=== PATIENT | female | born 1990 | race Caucasian/White ===

== ENCOUNTER 2020-11-26 07:46 | Inpatient (IN) ==
[2020-11-26] MEDS ORDERED: OXYTOCIN 30 UNITS/500 ML BAG IV PRN ×2 (07:54→21:21)
[2020-11-26 08:32] LABS: Hematocrit (blood only) 38.9 % (37-47); Hemoglobin 13.6 g/dL (12.0-16.0); Mean Corpuscular Hemoglobin 32.7 pg (25-34); Mean Corpuscular Volume 93.5 fL (80-100); Mean Platelet Volume 10.4 fL (7.4-10.4); Platelet Count 161 K/uL (130-400); RDW Coefficient of Variation 13.2 % (11.5-14.5); RDW Standard Deviation 45.4 fL (36.4-46.3); Red Blood Count 4.16 M/uL (4.2-5.4); White Blood Count 11.29 K/uL (4.8-10.8)
--- NOTE | 2020-11-26 09:15 | History & Physical Report ---
Date of Service November 26, 2020 Assessment & Plan Admission and Anticipated Discharge Date Admission Date: November 26, 2020 History of Present Illness Primary Care Provider: NO PCP Allergies Allergy/AdvReac Type Severity Reaction Status Date / Time No Known Allergies Allergy Verified 11/25/20 16:19 Home Medications Medication Instructions Recorded Confirmed Type prenat.vits,brandon,mai-voeh-xtaly 1 tab PO DAILY 11/26/20 11/26/20 History Patient History Medical History (Updated 10/25/20 @ 11:03 by Alina Wharton MD, FACOG) Asthma Family history of factor V deficiency Varicella vaccination Surgical History (Updated 04/05/20 @ 09:51 by Roxy Gray) S/P wisdom tooth extraction Family History (Updated 04/05/20 @ 09:52 by Roxy Gray) Aunt Breast cancer maternal Denies family history of Ovarian cancer Osteoporosis Colorectal cancer Uterine cancer Social History (Updated 04/05/20 @ 09:54 by Roxy Gray) Smoking Status: Never smoker Hx Alcohol Use: No Hx Substance Use: No Preferred Language: Latvian Communication Ability: Effective Offc Spec Required: No marital status: marital status details: Lyndon Crespo (29) [phone] Current Living Situation: Spouse Current Living Situation Comment: lives with and dog current occupational status: unemployed Feels Safe at Home: Yes Safety Concerns: Feels Safe At This Time Assistive Devices: None Results & Data ([facility]) Vital Signs (Past 12 Hours) Vital Signs Temp Pulse Resp BP 11/26/20 08:44 98.2 F 20 11/26/20 07:52 93 H 109/68 Coding
--- NOTE | 2020-11-26 10:12 | History & Physical Report ---
Date of Service November 26, 2020 Assessment & Plan (1) Normal labor: Plan: IUP at 40 2/7 weeks in active labor ambulate- intermittent monitoring would like unmedicated anticipate vaginal delivery Admission and Anticipated Discharge Date Admission Date: November 26, 2020 History of Present Illness Chief Complaint: labor Primary Care Provider: NO PCP Patient is a female EDC 11/21/20 who presents on the day of IOL in labor. Contractions became regular at 0400 this morning. no bloody show or SPROM. GBS - negative Blood type is O positive. complicated by Factor V deficiency- heterozygote. Allergies Allergy/AdvReac Type Severity Reaction Status Date / Time No Known Allergies Allergy Verified 11/25/20 16:19 Home Medications Medication Instructions Recorded Confirmed Type prenat.vits,brandon,xtz-qjou-qqyjp 1 tab PO DAILY 11/26/20 11/26/20 History Patient History Medical History (Updated 11/26/20 @ 10:28 by Tash Good MD, FACOG) Asthma Family history of factor V deficiency Varicella vaccination Surgical History (Updated 04/05/20 @ 09:51 by Roxy Gray) S/P wisdom tooth extraction Family History (Updated 04/05/20 @ 09:52 by Roxy Gray) Aunt Breast cancer maternal Denies family history of Ovarian cancer Osteoporosis Colorectal cancer Uterine cancer Social History (Updated 04/05/20 @ 09:54 by Roxy Gray) Smoking Status: Never smoker Hx Alcohol Use: No Hx Substance Use: No Preferred Language: German Communication Ability: Effective 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 marital status: marital status details: Lyndon Crespo (29) [phone] Current Living Situation: Spouse Current Living Situation Comment: lives with and dog current occupational status: unemployed Feels Safe at Home: Yes Safety Concerns: Feels Safe At This Time Assistive Devices: None Review of Systems All systems reviewed & are unremarkable except as noted in HPI & below Physical Exam Constitutional: WD/WN, vitals as above Respiratory: normal respiratory effort, lungs clear to auscultation Cardiovascular: RRR, no murmur, no edema Psychiatric: A+Ox3, euthymic affect Genitourinary: OB Exam Abdomen: + vertex and + regular contractions (3-4 minutes) Manual OB Exam: + cervical dilation 3 cm, + cervical effacement 100% and + station 0 OB Exam Monitor Tracing: + external FHT monitor used, + external uterine monitor used, + category I and + normal FHT variability Results & Data ([facility]) Vital Signs (Past 12 Hours) Vital Signs Temp Pulse Resp BP 11/26/20 08:44 98.2 F 20 11/26/20 07:52 93 H 109/68 Coding Level of Care Code None Diagnoses Normal labor O80; Z37.9
[2020-11-26] MEDS ORDERED: SODIUM CHLORIDE 0.9% 250 ML IV PRN (11:12)
[2020-11-26] MEDS: LACTATED RINGER'S 1,000 ML IV PRN ×3 (12:35→17:28)
--- NOTE | 2020-11-26 12:38 | Labor Progress Brief Note ---
Date of Service November 26, 2020 Subjective Very uncomfortable w/ contractions Assessment & Plan (1) Normal labor: (2) : Plan: 30 y/o G1 at 40 5/7 wga admitted in labor VSS Fetus cat 1 Labor - SVE unchanged from prior exams, discussed AROM, pitocin, also epidural as pt is very painful. After discussion, pt desires epidural first then plan for AROM GBS neg Desires epidural now Admission and Anticipated Discharge Date Admission Date: November 26, 2020 Physical Exam Genitourinary: Manual OB Exam: + cervical dilation 4 cm, + cervical effacement 80% and + station -2 OB Exam Monitor Tracing: + external FHT monitor used, + external uterine monitor used (q4-7) and + category I (145/mod/+accel/-decel) Results & Data ([facility]) Vital Signs (Past 12 Hours) Vital Signs Temp Pulse Resp BP 11/26/20 11:59 98.4 F 16 11/26/20 10:50 85 130/77 11/26/20 08:44 98.2 F 20 11/26/20 07:52 93 H 109/68 Coding Level of Care Code None Diagnoses Normal labor O80; Z37.9 Z34.90
[2020-11-26] MEDS ORDERED: ePHEDrine sulfate 50 MG/ML AMP ONE (12:40)
[2020-11-26] MEDS ORDERED: fentaNYL citrate 100 MCG/2 ML VIAL ONE (12:41)
[2020-11-26] MEDS ORDERED: SODIUM CHLORIDE 0.9% INJ 10 ML VIAL ONE (12:41)
[2020-11-26] MEDS ORDERED: BUPIVACAINE 0.25% 30 ML VIAL ONE (12:41)
[2020-11-26] MEDS ORDERED: fentaNYL 2MCG/ML ROPIVACAINE 1.25MG/ML 100 ML BAG EPI ONE (12:42)
--- NOTE | 2020-11-26 13:00 | Anesthesiology Consultation ---
Date of Service November 26, 2020 Assessment & Plan Chart Review Chart Review: Patient NOT seen in Pre Admission Testing and Acceptable Risk for Labor Epidural Consults Requested none ASA ASA2 Proposed Anesthesia Anesthesia Type: Labor Epidural and CSE History Height/Weight Height: 5 ft 4 in Weight: 74.843 kg Allergies Allergy/AdvReac Type Severity Reaction Status Date / Time No Known Allergies Allergy Verified 11/25/20 16:19 Medications Home Medications Medication Instructions Recorded Confirmed Last Taken prenat.vits,brandon,fkh-hcgy-xcymn 1 tab PO DAILY 11/26/20 11/26/20 11/26/20 06:00 Active Medications Generic Name Dose Route Start Last Admin Trade Name Freq PRN Reason Stop Dose Admin Lactated Ringer's 1,000 mls @ 125 mls/hr 11/26/20 07:54 11/26/20 12:35 Lr IV 11/28/20 07:53 999 mls/hr .Q8H PRN Administration L&D Protocol Protocol Past Medical History Medical History Asthma Family history of factor V deficiency Varicella vaccination Exercise / Class Metabolic Activity II 4-5 Yardwork/Stairs/Walk up hill Past Family History Family History Aunt Breast cancer maternal Denies family history of Ovarian cancer Osteoporosis Colorectal cancer Uterine cancer Past Surgical History Surgical History S/P wisdom tooth extraction Past Anesthesia History No Hx of Anesthesia Complications and No Family Hx of Anesthesia Complications History of PONV No Hx of PONV and No Hx of Motion Sickness Social History Smoking Status: Never smoker Hx Alcohol Use: No Hx Substance Use: No substance use type: does not use Physical Exam Vital Signs Last Vital Signs Temp 36.9 C 11/26/20 11:59 Pulse 85 11/26/20 10:50 Resp 16 11/26/20 11:59 BP 130/77 11/26/20 10:50 Testing Laboratory Results 11/26/20 08:11
[2020-11-26] MEDS ORDERED: NALOXONE HCL 0.4 MG/1 ML VIAL/CARP IV PRN (13:33)
[2020-11-26] MEDS ORDERED: PROMETHAZINE HCL 25 MG in SODIUM CHLORIDE 0.9% 50 ML IV PRN (13:33)
[2020-11-26] MEDS ORDERED: NALOXONE HCL 1 MG in SODIUM CHLORIDE 0.9% 1000ML 1,000 ML IV PRN (13:33)
[2020-11-26] MEDS ORDERED: ePHEDrine sulfate 50 MG/ML AMP IV PRN (13:33)
[2020-11-26] MEDS ORDERED: fentaNYL 2MCG/ML ROPIVACAINE 1.25MG/ML 100 ML BAG EPI PRN (13:33)
[2020-11-26] MEDS ORDERED: NALBUPHINE HCL INJ 10 MG/ML AMP IV PRN (13:33)
[2020-11-26] MEDS ORDERED: ONDANSETRON INJ 2 MG/ML 2 ML VIAL IV PRN (13:33)
[2020-11-26] MEDS ORDERED: diphenhydrAMINE 50 MG/ML VIAL IV PRN (13:33)
--- NOTE | 2020-11-26 14:06 | Labor Progress Brief Note ---
Date of Service November 26, 2020 Subjective Comfortable w/ epidural Assessment & Plan (1) Normal labor: (2) : Plan: 30 y/o G1 at 40 5/7 wga admitted in labor VSS Fetus cat 1 Labor - now s/p arom after comfortable w/ epidural, continue to monitor GBS neg Epidural in place Admission and Anticipated Discharge Date Admission Date: November 26, 2020 Physical Exam Genitourinary: Manual OB Exam: + cervical dilation 4 cm, + cervical effacement 80%, + station -2 and + amniotic fluid (AROM clear fluid) OB Exam Monitor Tracing: + external FHT monitor used, + external uterine monitor used (q4-7) and + category I (130/mod/+accel/-decel) Results & Data ([facility]) Vital Signs (Past 12 Hours) Vital Signs Temp Pulse Resp BP Pulse Ox 11/26/20 14:00 70 100 11/26/20 13:58 90 101/58 L 11/26/20 13:55 91 H 100 11/26/20 13:50 87 100 11/26/20 13:45 106 H 100 11/26/20 13:42 90 102/57 L 11/26/20 13:41 93 H 93/56 L 11/26/20 13:40 88 100 11/26/20 13:39 100 H 102/56 L 11/26/20 13:37 104 H 101/57 L 11/26/20 13:35 93 H 102/56 L 100 11/26/20 13:33 82 104/59 L 11/26/20 13:31 100 H 104/58 L 11/26/20 13:30 88 105/57 L 99 11/26/20 13:28 78 111/65 11/26/20 13:25 99 H 100 11/26/20 13:24 81 121/73 11/26/20 13:20 93 H 100 11/26/20 13:15 104 H 100 11/26/20 13:10 87 120/74 100 11/26/20 11:59 98.4 F 16 11/26/20 10:50 85 130/77 11/26/20 08:44 98.2 F 20 11/26/20 07:52 93 H 109/68 Coding Level of Care Code None Diagnoses Normal labor O80; Z37.9 Z34.90
--- NOTE | 2020-11-26 16:26 | Labor Progress Brief Note ---
Date of Service November 26, 2020 Subjective Comfortable w/ epidural Assessment & Plan (1) Normal labor: (2) : Plan: 30 y/o G1 at 40 5/7 wga admitted in labor VSS Fetus cat 1 Labor - will labor down as pt does not feel pressure, plan to push in next hour or so GBS neg Epidural in place Admission and Anticipated Discharge Date Admission Date: November 26, 2020 Physical Exam Genitourinary: Manual OB Exam: + cervical dilation 10 cm, + cervical effacement 100% and + station + 1 OB Exam Monitor Tracing: + external FHT monitor used, + external uterine monitor used (q3-5) and + category I (140/mod/-accel/-decel) Results & Data ([facility]) Vital Signs (Past 12 Hours) Vital Signs Temp Pulse Resp BP Pulse Ox 11/26/20 16:20 96 H 100 11/26/20 16:15 87 100 11/26/20 16:14 90 110/56 L 11/26/20 16:10 108 H 100 11/26/20 16:05 88 100 11/26/20 16:00 95 H 100 11/26/20 15:59 83 101/59 L 11/26/20 15:55 85 100 11/26/20 15:50 82 100 11/26/20 15:45 79 100 11/26/20 15:44 81 109/56 L 11/26/20 15:40 79 100 11/26/20 15:35 92 H 100 11/26/20 15:30 78 100 11/26/20 15:29 81 20 109/60 11/26/20 15:25 85 100 11/26/20 15:20 84 100 11/26/20 15:15 107 H 99 11/26/20 15:13 83 109/60 11/26/20 15:10 84 100 11/26/20 15:05 90 100 11/26/20 15:00 96 H 96 11/26/20 14:59 82 106/60 11/26/20 14:55 84 100 11/26/20 14:50 82 100 11/26/20 14:45 90 100 11/26/20 14:43 98.8 F 82 16 101/57 L 11/26/20 14:40 89 100 11/26/20 14:35 85 99 11/26/20 14:30 80 100 11/26/20 14:28 80 16 101/58 L 11/26/20 14:25 88 100 11/26/20 14:20 78 100 11/26/20 14:15 81 99 11/26/20 14:13 85 102/58 L 11/26/20 14:10 89 100 11/26/20 14:05 88 99 11/26/20 14:00 70 100 11/26/20 13:58 90 101/58 L 11/26/20 13:55 91 H 100 11/26/20 13:50 87 100 11/26/20 13:45 106 H 100 11/26/20 13:42 90 102/57 L 11/26/20 13:41 93 H 93/56 L 11/26/20 13:40 88 100 11/26/20 13:39 100 H 102/56 L 11/26/20 13:37 104 H 101/57 L 11/26/20 13:35 93 H 102/56 L 100 11/26/20 13:33 82 104/59 L 11/26/20 13:31 100 H 104/58 L 11/26/20 13:30 88 105/57 L 99 11/26/20 13:28 78 111/65 11/26/20 13:25 99 H 100 11/26/20 13:24 81 121/73 11/26/20 13:20 93 H 100 11/26/20 13:15 104 H 100 11/26/20 13:10 87 120/74 100 11/26/20 11:59 98.4 F 16 11/26/20 10:50 85 130/77 11/26/20 08:44 98.2 F 20 11/26/20 07:52 93 H 109/68 Coding Level of Care Code None Diagnoses Normal labor O80; Z37.9 Z34.90
--- NOTE | 2020-11-26 20:48 | Delivery Summary ---
Vaginal Delivery Summary Date of Service November 26, 2020 Vaginal Delivery Summary and 2nd Degree LAC PREOPERATIVE DIAGNOSIS: 1. Single intrauterine at 40 5/7 wga 2. Labor 3. Factor V Leiden Heterozygote 4. CF carrier POSTOPERATIVE DIAGNOSIS: 1. Single intrauterine at 40 5/7 wga 2. Labor 3. Factor V Leiden Heterozygote 4. CF carrier 5. Delivered PROCEDURE: 1. Normal spontaneous vaginal delivery. SURGEON: Shayy Quinn MD ANESTHESIA: Epidural. ESTIMATED BLOOD LOSS: 300 mL FLUIDS: Continuous LR. URINE OUTPUT: None. COMPLICATIONS: None. CONDITION: Stable. INDICATIONS: 30 y/o G1 at 40 5/7 wga presented this morning for planned induction however was actually found to be in labor. She was expectantly managed, then received an epidural. She underwent artificial rupture of membranes and then progressed to complete and desired to push. FINDINGS: A viable female infant, weight pending with Apgars of 8 and 9 at 1 and 5 minutes respectively. SPECIMEN: Cord blood. OPERATIVE REPORT: The patient progressed to 10 cm, 100% effaced and +2 station, pushed over intact perineum with anesthesia to deliver a viable female infant, weight and Apgars as above. Head of delivered in ANTONIO position. No nuchal cord was present. Body and shoulders were delivered without difficulty. was delivered to maternal abdomen and nursing staff. Delayed cord clamping was performed for 60 seconds. Cord was clamped and cut. Cord blood was obtained. Placenta delivered spontaneously intact with 3-vessel cord. IV oxytocin and fundal massage were given for excellent hemostasis. Vagina, cervix, perineum, and placenta were inspected. A second degree laceration was noted. Sponge and needle counts correct x2. No sponges were left behind. Mother and stable in immediate period. [facility] [place] Charge Vaginal Delivery Codes: 15907 global code for the antepartum, delivery, and post- Delivery Type Details: and 2nd Degree LAC
[2020-11-26] MEDS ORDERED: CALCIUM CARBONATE 500 MG CHEWABLE TAB PO PRN (21:02)
[2020-11-26] MEDS ORDERED: DIPHTHERIA/TETANUS/PERTUSSIS 0.5 ML SYR/VIAL IM ONE (21:21)
[2020-11-26] MEDS ORDERED: BENZOCAINE 20% AER SPR 82.5 GM CAN EXT PRN (21:21)
[2020-11-26] MEDS ORDERED: ACETAMINOPHEN 325 MG TAB PO PRN (21:21)
[2020-11-26] MEDS ORDERED: HYDROCORTISONE ACETATE 25 MG SUPP PR PRN (21:21)
[2020-11-26] MEDS ORDERED: bisacodyL 10 MG SUPP PR PRN (21:21)
[2020-11-26] MEDS ORDERED: SUPERCREAM 0.870% 15 GM JAR EXT PRN (21:21)
--- NOTE | 2020-11-26 21:38 | Anesthesia Procedure Note ---
Date of Service November 26, 2020 Anesthesia Post Epidural Note Vital Signs Vital Signs: Temp Pulse Resp BP Pulse Ox 37.0 C 101 H 20 117/64 100 11/26/20 19:05 11/26/20 21:27 11/26/20 19:05 11/26/20 21:27 11/26/20 20:36 Pain Intensity Abdomen: Pain Intensity: 8 Notes Mental Status: alert / awake / arousable Nausea / Vomiting: adequately controlled Pain: adequately controlled Airway Patency, RR, SpO2: stable & adequate BP & HR: stable & adequate Hydration State: stable & adequate Neuraxial Anesthesia: was administered and sensory block is resolving Anesthetic Complications: no major complications apparent Epidural: Removed without complications and With tip intact
[2020-11-26] MEDS: IBUPROFEN 600 MG TAB PO PRN (22:08)
[2020-11-27] MEDS: IBUPROFEN 600 MG TAB PO PRN ×4 (03:50→20:31)
--- NOTE | 2020-11-27 06:32 | Obstetrical Progress Note ---
Date of Service <Hunter Parisi - Last Filed: 11/27/20 06:32> November 27, 2020 Assessment & Plan <Hunter Parisi - Last Filed: 11/27/20 06:32> (1) Encounter for care and examination after delivery: 30 yo PPD 1 s/p at 40weeks -Continue routine care; complicated by Factor V Leiden; keep pt additional 24 hours. -Vitals reviewed- HDS, afebrile -O+, GBS-, Rubella immune -Encourage ambulation, regular diet -Pain control with ibuprofen, acetaminophen PRN -Encouraged <Shayy Quinn MD - Last Filed: 11/27/20 08:17> (1) Encounter for care and examination after delivery: Subjective <Hunter Parisi - Last Filed: 11/27/20 06:32> Ambulation: ambulating normally Voiding: no voiding problems Passing Gas:: Yes Diet Tolerance:: regular diet Lochia:: Large Feeding Type:: breast feeding Current Pain Level(1-10): 2 PPD 1 s/p . Patient seen and examined at bedside. Reports no acute overnight events. Review of Systems All systems reviewed & are unremarkable except as noted in HPI & below Physical Exam <Hunter Parisi DO - Last Filed: 11/27/20 06:32> General: Alert, oriented, no acute distress Cardiac: Regular rate and rhythm, normal S1, S2. No murmurs appreciated. Respiratory: Clear to auscultation b/l with good air flow entry, symmetric chest rise and fall. No wheezes or crackles. No increased work of breathing or accessory muscle use Abdomen: Soft, nontender, nondistended. Fundus firm and palpable at 1 cm above u mbilicus. No guarding or rebound. Skin: No rashes or lesions Extremities: Warm, dry, well-perfused with capillary refill <2s b/l. No lower extremity edema, erythema or swelling. Negative Nia's sign b/l. Results & Data ([facility]) <Hunter Parisi - Last Filed: 11/27/20 06:32> Vital Signs (Past 12 Hours) Vital Signs Temp Pulse Pulse Pulse Resp BP BP 11/27/20 03:35 36.6 C 88 18 115/79 11/26/20 23:00 36.9 C 74 18 118/74 11/26/20 22:42 81 122/61 11/26/20 22:27 89 112/58 L 11/26/20 22:12 126 H 106/69 11/26/20 21:57 87 99/58 L 11/26/20 21:42 95 H 107/61 11/26/20 21:27 101 H 117/64 11/26/20 21:12 92 H 110/59 L 11/26/20 20:57 113 H 98/55 L 11/26/20 20:43 96 H 107/58 L 11/26/20 20:36 89 11/26/20 20:31 94 H 11/26/20 20:26 95 H 11/26/20 20:21 99 H 11/26/20 20:16 130 H 11/26/20 20:13 103 H 150/120 H 11/26/20 20:11 84 11/26/20 20:06 94 H 11/26/20 20:01 84 11/26/20 19:56 118 H 11/26/20 19:51 94 H 11/26/20 19:46 86 11/26/20 19:43 98 H 137/59 L 11/26/20 19:41 114 H 11/26/20 19:36 118 H 11/26/20 19:31 96 H 11/26/20 19:28 100 H 132/69 11/26/20 19:26 90 11/26/20 19:21 102 H 11/26/20 19:16 85 11/26/20 19:13 81 129/65 11/26/20 19:11 94 H 11/26/20 19:06 102 H 11/26/20 19:05 37.0 C 20 11/26/20 19:01 94 H 11/26/20 18:59 88 130/60 11/26/20 18:56 84 11/26/20 18:51 89 11/26/20 18:46 105 H 11/26/20 18:45 91 H 122/69 11/26/20 18:41 110 H 11/26/20 18:36 104 H 11/26/20 18:31 103 H 11/26/20 18:29 100 H 20 143/77 H Pulse Ox 11/27/20 03:35 98 11/26/20 23:00 99 11/26/20 22:42 11/26/20 22:27 11/26/20 22:12 11/26/20 21:57 11/26/20 21:42 11/26/20 21:27 11/26/20 21:12 11/26/20 20:57 11/26/20 20:43 11/26/20 20:36 100 11/26/20 20:31 100 11/26/20 20:26 99 11/26/20 20:21 97 11/26/20 20:16 100 11/26/20 20:13 11/26/20 20:11 100 11/26/20 20:06 100 11/26/20 20:01 100 11/26/20 19:56 100 11/26/20 19:51 100 11/26/20 19:46 100 11/26/20 19:43 11/26/20 19:41 100 11/26/20 19:36 98 11/26/20 19:31 100 11/26/20 19:28 11/26/20 19:26 100 11/26/20 19:21 100 11/26/20 19:16 99 11/26/20 19:13 11/26/20 19:11 100 11/26/20 19:06 100 11/26/20 19:05 11/26/20 19:01 100 11/26/20 18:59 11/26/20 18:56 100 11/26/20 18:51 100 11/26/20 18:46 100 11/26/20 18:45 11/26/20 18:41 100 11/26/20 18:36 99 11/26/20 18:31 100 11/26/20 18:29 <Shayy Quinn MD - Last Filed: 11/27/20 08:17> Co-Signing Physician Notes Resident Physician Supervision Note: I interviewed and examined the patient. Discussed with Dr. Parisi and agree with findings and plan as documented in the note. Any exceptions or clarifications are listed here: PP1, doing well. Continue routine pp care, plan for d/c tomor row Documented By: Shayy Quinn MD
[2020-11-27 06:55] LABS: Hematocrit (blood only) 30.8 % (37-47); Hemoglobin 10.5 g/dL (12.0-16.0); Mean Corpuscular Hemoglobin 32.2 pg (25-34); Mean Corpuscular Hgb Conc 34.1 g/dL (32-36); Mean Corpuscular Volume 94.5 fL (80-100); Mean Platelet Volume 10.4 fL (7.4-10.4); Platelet Count 137 K/uL (130-400); RDW Coefficient of Variation 13.3 % (11.5-14.5); RDW Standard Deviation 46.3 fL (36.4-46.3); Red Blood Count 3.26 M/uL (4.2-5.4); White Blood Count 13.25 K/uL (4.8-10.8)
[2020-11-27] MEDS: PRENATAL VITAMIN 1 TAB PO SCH (07:57)
[2020-11-27] MEDS: DOCUSATE SODIUM 100 MG CAP PO SCH ×2 (07:57→20:32)
[2020-11-27] MEDS: FERROUS SULFATE 325 MG TAB PO SCH (12:58)
[2020-11-27] MEDS ORDERED: bisacodyL 5 MG TABEC PO SCH (20:00)
--- NOTE | 2020-11-28 08:16 | Obstetrical Progress Note ---
Date of Service November 28, 2020 Assessment & Plan (1) Encounter for care and examination after delivery: satisfactory progress discharge tyo home today follow up in 6 weeks Subjective Ambulation: ambulating normally Voiding: no voiding problems Diet Tolerance:: regular diet Lochia:: Small Feeding Type:: breast feeding Review of Systems All systems reviewed & are unremarkable except as noted in HPI & below Physical Exam Constitutional WD/WN, vitals as above Psychiatric A+Ox3, euthymic affect Genitourinary OB Exam Abdomen: + fundal height Fundus: + firm and + relation to umbilicus (2 below ) Results & Data ([facility]) Vital Signs (Past 12 Hours) Vital Signs Temp Pulse Resp BP 11/27/20 23:45 98.4 F 97 H 18 111/72
[2020-11-28] MEDS: IBUPROFEN 600 MG TAB PO PRN (09:02)
[2020-11-28] MEDS: FERROUS SULFATE 325 MG TAB PO SCH (09:03)
[2020-11-28] MEDS: PRENATAL VITAMIN 1 TAB PO SCH (09:03)
== END 2020-11-28 13:30 | disposition home or self-care (01) | DRG 807 ==
LOC: 4S1 07:46 → 4S2 23:01

== ENCOUNTER 2023-10-06 18:14 | Inpatient (IN) ==
[2023-10-06] MEDS ORDERED: LIDOCAINE 1% LOCAL 20 ML VIAL INFIL PRN (18:31)
--- NOTE | 2023-10-06 18:33 | History & Physical Report ---
Date of Service October 06, 2023 Assessment & Plan (1) Uterine contractions: Plan: Admit to L&D. EFM/toco. Labs. IV. Desires epidural - ok when she chooses. History of Present Illness Chief Complaint: labor Primary Care Provider: NO PCP 33yo @ 39 4/7, contractions since last night, increasing. No leaking fluid, no vaginal bleeding. + movement. Allergies Allergy/AdvReac Type Severity Reaction Status Date / Time pollen extracts Allergy Itching Verified 10/06/23 01:29 Home Medications Medication Instructions Recorded Confirmed Type Excedrin Tension Headache 1 tab PO DAILY PRN Migraine 09/09/23 10/06/23 History Headache Pepcid 1 tab PO DAILY PRN Allergy Symptoms 09/09/23 10/06/23 History Tums 500 mg PO BLANK PRN Acid Reflux 09/09/23 10/06/23 History vit no.95-ferrous 1 tab PO DAILY 09/09/23 10/06/23 History fumarate 28 mg-folic acid 800 mcg tablet () Patient History Medical History Missed Encounter for care and examination after delivery Asthma Varicella vaccination Surgical History S/P wisdom tooth extraction Family History Aunt Breast cancer maternal Mother Factor V Leiden Denies family history of Ovarian cancer Osteoporosis Colorectal cancer Uterine cancer Social History (Updated 02/21/23 @ 13:05 by Roxy Gray) Smoking Status: Never smoker Do You Dip or Chew Tobacco: No; Hx Alcohol Use: No Hx Substance Use: No Preferred Language: Jamaican Communication Ability: Effective 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 Beliefs That Will Affect Care: None marital status: marital status details: Lyndon Crespo (32) [phone] Current Living Situation: Spouse Current Living Situation Comment: house with and daughter current occupational status: unemployed current occupation: homemaker Feels Safe at Home: Yes Assistive Devices: None Review of Systems All systems reviewed & are unremarkable except as noted in HPI & below Physical Exam Physical Exam: FHT Cat 1 [place] not tracing, feeling ctx Q 3-5 min SVE 4/90/-2 (was 1cm this morning) Constitutional: WD/WN, vitals as above Respiratory: normal respiratory effort, lungs clear to auscultation no respiratory distress Cardiovascular: Rate/Rhythm: regular rate and regular rhythm Gastrointestinal (Abdomen): Inspection/Auscultation: abdomen normal to i nspection Percussion/Palpation: abdomen soft; abdomen nontender Gravid. No s/s chorio or abruption. Skin: no rashes, warm and dry Psychiatric: A+Ox3, euthymic affect Results & Data Vital Signs (Past 12 Hours) Vital Signs Pulse BP 10/06/23 18:24 96 H 113/63 Coding Level of Care Code None Diagnoses Uterine contractions O47.9
[2023-10-06] MEDS: LACTATED RINGER'S 1,000 ML IV PRN (18:40)
[2023-10-06 19:21] LABS: Hematocrit (blood only) 38.9 % (37.0-47.0); Hemoglobin 13.2 g/dl (12.0-16.0); Mean Corpuscular Hemoglobin 31.4 pg (25.0-34.0); Mean Corpuscular Hgb Conc 33.9 g/dL (32.0-36.0); Mean Corpuscular Volume 92.4 fL (80.0-100.0); Mean Platelet Volume 10.4 fL (9.4-12.4); Platelet Count 157 K/uL (130-400); RDW Standard Deviation 43.8 fL (36.4-46.3); Red Blood Count 4.21 M/uL (4.20-5.40); White Blood Count 9.57 K/ul (4.8-10.8)
[2023-10-06] MEDS: BUPIVACAINE 0.25% PF 30 ML VIAL ONE (20:09)
[2023-10-06] MEDS: LIDOCAINE 2%/EPINEPHRINE 1:200,000 20 ML PF ONE (20:09)
[2023-10-06] MEDS: fentANYL 2 MCG/ML BUPIVacaine 0.125%-NSS 100ML BAG ONE (20:11)
--- NOTE | 2023-10-06 20:29 | Anesthesiology Consultation ---
Date of Service October 06, 2023 Assessment & Plan Chart Review Chart Review: Acceptable Risk for Labor Epidural Consults Requested none History Height/Weight Height: 5 ft 4 in Weight: 79.832 kg Allergies Allergy/AdvReac Type Severity Reaction Status Date / Time pollen extracts Allergy Itching Verified 10/06/23 01:29 Medications Home Medications Medication Instructions Recorded Confirmed Last Taken Excedrin Tension Headache 1 tab PO DAILY PRN Migraine 09/09/23 10/06/23 09/09/23 12:00 Headache Pepcid 1 tab PO DAILY PRN Allergy Symptoms 09/09/23 10/06/23 10/05/23 Tums 500 mg PO BLANK PRN Acid Reflux 09/09/23 10/06/23 10/05/23 vit no.95-ferrous 1 tab PO DAILY 09/09/23 10/06/23 10/05/23 fumarate 28 mg-folic acid 800 mcg tablet () Active Medications Generic Name Dose Route Start Last Admin Trade Name Freq PRN Reason Stop Dose Admin Lactated Ringer's 1,000 mls @ 125 mls/hr 10/06/23 18:31 10/06/23 19:37 Lr IV 10/08/23 18:30 125 mls/hr .Q8H PRN Administration L&D Protocol Protocol Past Medical History Medical History Missed Encounter for care and examination after delivery Asthma Varicella vaccination Past Family History Family History Aunt Breast cancer maternal Mother Factor V Leiden Denies family history of Ovarian cancer Osteoporosis Colorectal cancer Uterine cancer Past Surgical History Surgical History S/P wisdom tooth extraction Social History Smoking Status: Never smoker Do You Dip or Chew Tobacco: No Hx Alcohol Use: No Hx Substance Use: No substance use type: does not use Physical Exam Vital Signs Last Vital Signs Temp 37.0 C 10/06/23 19:20 Pulse 91 H 10/06/23 20:27 Resp 18 10/06/23 19:20 BP 115/56 L 10/06/23 20:27 Pulse Ox 99 10/06/23 20:27 O2 Del Method Room Air 10/06/23 19:13 Testing Laboratory Results 10/06/23 19:06
[2023-10-06] MEDS: SODIUM CHLORIDE 0.9% PF INJ 10 ML VIAL ONE (20:34)
[2023-10-06] MEDS: fentaNYL citrate PF 100 MCG/2 ML VIAL ONE (20:34)
[2023-10-06] MEDS ORDERED: ePHEDrine sulfate 50 MG/ML AMP IV PRN (21:02)
[2023-10-06] MEDS ORDERED: NALOXONE HCL 0.4 MG/1 ML VIAL/CARP IV PRN (21:02)
[2023-10-06] MEDS ORDERED: NALOXONE HCL 1 MG in SODIUM CHLORIDE 0.9% 1,000 ML IV PRN (21:02)
[2023-10-06] MEDS ORDERED: NALBUPHINE HCL 5 MG in SYRINGE 0 ML IV PRN (21:02)
[2023-10-06] MEDS ORDERED: fentaNYL citrate PF 100 MCG/2 ML VIAL EPI PRN (21:02)
[2023-10-06] MEDS ORDERED: fentANYL 2 MCG/ML BUPIVacaine 0.125%-NSS 100ML BAG EPI PRN (21:02)
[2023-10-06] MEDS ORDERED: SODIUM CHLORIDE 0.9% PF INJ 10 ML VIAL EPI PRN (21:02)
[2023-10-06] MEDS ORDERED: LIDOCAINE 2% MPF LOCAL 5 ML VIAL EPI PRN (21:02)
[2023-10-06] MEDS ORDERED: diphenhydrAMINE 50 MG/ML VIAL IV PRN (21:02)
[2023-10-06] MEDS ORDERED: ROPIVACAINE 0.5% PF 5 MG/ML 20 ML VIAL EPI PRN (21:02)
[2023-10-06] MEDS ORDERED: BUPIVACAINE 0.25% PF 30 ML VIAL EPI PRN (21:02)
[2023-10-06] MEDS: BUPIVACAINE 0.25% PF 30 ML VIAL EPI STA (21:12)
[2023-10-06] MEDS: fentaNYL citrate PF 100 MCG/2 ML VIAL EPI STA (21:13)
[2023-10-06] MEDS: LIDOCAINE 2%/EPINEPHRINE 1:200,000 20 ML PF EPI STA (21:13)
[2023-10-06] MEDS: SODIUM CHLORIDE 0.9% PF INJ 10 ML VIAL EPI STA (21:13)
[2023-10-06] MEDS: OXYTOCIN 30 UNITS/NSS 30 UNITS/500 ML BAG IV PRN (23:01)
--- NOTE | 2023-10-06 23:09 | Delivery Summary ---
Vaginal Delivery Summary Date of Service October 06, 2023 Vaginal Delivery Summary and 1st Degree LAC Vaginal Delivery Summary: Pre-delivery diagnoses: 33yo @ 39 /, spontaneous labor, CF carrier, Factor V heterozygous mutation Post-delivery diagnoses: same Procedure: spontaneous vaginal delivery Surgeon: Meredith Moy DO Complications: none Findings: Viable male . Apgars: 8/9 . Weight pending, please see nursery records Estimated QBL: 50ml Description of delivery: The patient progressed to complete with epidural anesthesia. She then began to push. She spontaneously vaginally delivered a viable from the cephalic presentation. The head delivered in ANTONIO position. Nuchal cord, too tight to reduce, delivered through. The anterior shoulder delivered, followed by the posterior shoulder, followed by the body. The baby was placed on mother's abdomen and a spontaneous cry was heard. Delayed cord clamping was employed, and the cord was doubly clamped and cut. Cord blood was obtained. The placenta was delivered spontaneously intact with a 3-vessel cord. The uterus and vagina were swept of clots and debris. IV pitocin was given. The uterus became firm. The cervix, vagina, and perineum were inspected and a first degree laceration was noted, hemostatic, patient elected against repair. Excellent hemostasis was observed. The mother and baby are recovering in stable and good condition in the room. Sponge and instrument counts were correct x 2. Meredith Moy DO [facility] Vaginal Delivery Charge Vaginal Delivery Codes: 37152 global code for the antepartum, delivery, and post- Delivery Type Details: and 1st Degree LAC
[2023-10-06] MEDS ORDERED: HYDROCORTISONE ACETATE 25 MG SUPP PR PRN (23:34)
[2023-10-06] MEDS ORDERED: OXYTOCIN 30 UNITS/NSS 30 UNITS/500 ML BAG IV PRN (23:34)
[2023-10-06] MEDS ORDERED: oxyCODONE/ACETAMINOPHEN 5mg/325mg TAB PO PRN (23:34)
[2023-10-06] MEDS: DIPHTHER/TETAN/PERTUS Vaccine (Tdap, Adol/Adult) 0.5mL IM ONE (23:54)
[2023-10-06] MEDS: ePHEDrine sulfate 50 MG/ML AMP ONE (23:54)
[2023-10-07] MEDS: BENZOCAINE 20% SPRY 85 APPLN/85 GM CAN EXT PRN (01:14)
[2023-10-07] MEDS: IBUPROFEN 600 MG TAB PO PRN (01:38)
--- NOTE | 2023-10-07 02:06 | Anesthesia Procedure Note ---
Date of Service October 07, 2023 Anesthesia Post Epidural Note Vital Signs Vital Signs: Temp Pulse Resp BP Pulse Ox O2 Del Method 36.4 C L 83 16 118/71 98 Room Air 10/07/23 01:10/07/23 01:10/07/23 01:10/07/23 01:10/07/23 01:10/07/23 01:29 Notes Mental Status: alert / awake / arousable Nausea / Vomiting: adequately controlled Pain: adequately controlled Airway Patency, RR, SpO2: stable & adequate BP & HR: stable & adequate Hydration State: stable & adequate Neuraxial Anesthesia: was administered and sensory block is resolving Anesthetic Complications: no major complications apparent and Pt Satisfied with anesthetic care Epidural: Removed without complications and With tip intact
[2023-10-07] MEDS: ACETAMINOPHEN 325 MG TAB PO PRN (04:40)
[2023-10-07 07:50] LABS: Hematocrit (blood only) 36.7 % (37.0-47.0); Hemoglobin 12.2 g/dl (12.0-16.0)
[2023-10-07] MEDS: DOCUSATE SODIUM 100 MG CAP PO SCH (08:39)
[2023-10-07] MEDS: PRENATAL VITAMIN 1 TAB PO SCH (08:39)
--- NOTE | 2023-10-07 08:56 | Obstetrical Progress Note ---
Date of Service October 07, 2023 Assessment & Plan (1) with 39 completed weeks gestation: PPD#1 doing well. Ambulating, eating/drinking, ok. Anticipate DC home tomorrow. Continue routine care. Subjective Ambulation: ambulating normally Voiding: no voiding problems Diet Tolerance:: regular diet Lochia:: Moderate Review of Systems All systems reviewed & are unremarkable except as noted in HPI & below Physical Exam Constitutional WD/WN, vitals as above no acute distress Respiratory normal respiratory effort Cardiovascular Rate/Rhythm: regular rate and regular rhythm Gastrointestinal (Abdomen) Inspection/Auscultation: abdomen normal to inspection; abdomen not distended Percussion/Palpation: abdomen soft Genitourinary OB Exam Abdomen: + fundal height Fundus: + firm; not tender Results & Data Vital Signs (Past 12 Hours) Vital Signs Temp Pulse Pulse Resp BP BP Pulse Ox 10/07/23 04:30 36.4 C L 76 18 105/72 97 10/07/23 01:29 36.4 C L 83 16 118/71 98 10/07/23 01:05 18 10/07/23 01:03 88 105/57 L 10/07/23 00:48 87 108/60 10/07/23 00:35 18 10/07/23 00:34 86 103/55 L 10/07/23 00:18 95 H 122/73 10/07/23 00:05 18 10/07/23 00:04 99 H 125/79 10/06/23 23:50 18 10/06/23 23:48 84 10/06/23 23:48 108/61 10/06/23 23:35 18 10/06/23 23:33 95 H 10/06/23 23:33 109/61 10/06/23 23:20 18 10/06/23 23:19 96 H 10/06/23 23:19 111/68 10/06/23 23:05 18 10/06/23 23:03 96 H 10/06/23 23:03 97/54 L 10/06/23 23:02 96 10/06/23 23:02 93 H 10/06/23 22:57 20 10/06/23 22:57 20 10/06/23 22:57 100 10/06/23 22:57 111 H 10/06/23 22:53 93 H 10/06/23 22:53 106/65 10/06/23 22:52 98 10/06/23 22:52 86 10/06/23 22:47 96 10/06/23 22:47 112 H 10/06/23 22:42 98 10/06/23 22:42 108 H 10/06/23 22:37 98 10/06/23 22:37 115 H 10/06/23 22:37 106/56 L 10/06/23 22:32 98 10/06/23 22:32 102 H 10/06/23 22:30 18 10/06/23 22:30 36.9 C 18 10/06/23 22:27 97 10/06/23 22:27 113 H 10/06/23 22:22 96 10/06/23 22:22 96 H 10/06/23 22:21 108 H 10/06/23 22:21 96/51 L 10/06/23 22:17 96 10/06/23 22:17 95 H 10/06/23 22:12 97 10/06/23 22:12 97 H 10/06/23 22:08 107 H 10/06/23 22:08 97/55 L 10/06/23 22:07 98 10/06/23 22:07 107 H 10/06/23 22:02 97 10/06/23 22:02 104 H 10/06/23 22:00 18 10/06/23 22:00 18 10/06/23 21:57 98 10/06/23 21:57 108 H 10/06/23 21:52 97 10/06/23 21:52 94 H 10/06/23 21:51 103 H 10/06/23 21:51 100/57 L 10/06/23 21:47 98 10/06/23 21:47 96 H 10/06/23 21:42 98 10/06/23 21:42 97 H 10/06/23 21:37 99 10/06/23 21:37 101 H 10/06/23 21:36 102 H 10/06/23 21:36 98/57 L 10/06/23 21:34 110 H 10/06/23 21:34 92/50 L 10/06/23 21:32 97 10/06/23 21:32 100 H 10/06/23 21:32 103 H 10/06/23 21:32 97/52 L 10/06/23 21:30 99 H 10/06/23 21:30 99/57 L 10/06/23 21:28 102 H 10/06/23 21:28 99/56 L 10/06/23 21:27 99 10/06/23 21:27 104 H 10/06/23 21:26 101 H 10/06/23 21:26 103/57 L 10/06/23 21:22 98 10/06/23 21:22 101 H 10/06/23 21:22 97/51 L 10/06/23 21:20 102 H 10/06/23 21:20 94/55 L 10/06/23 21:18 100 H 10/06/23 21:18 101/56 L 10/06/23 21:17 98 10/06/23 21:17 100 H 10/06/23 21:16 109 H 10/06/23 21:16 99/54 L 10/06/23 21:14 94 H 10/06/23 21:14 99/56 L 10/06/23 21:12 98 10/06/23 21:12 104 H 10/06/23 21:12 109 H 10/06/23 21:12 97/54 L 10/06/23 21:10 97 H 10/06/23 21:10 99/56 L 10/06/23 21:08 103 H 10/06/23 21:08 101/51 L 10/06/23 21:07 98 10/06/23 21:07 101 H 10/06/23 21:06 101 H 10/06/23 21:06 99/52 L 10/06/23 21:04 100 H 10/06/23 21:04 98/53 L 10/06/23 21:02 99 10/06/23 21:02 95 H 10/06/23 21:02 105 H 10/06/23 21:02 89/50 L 10/06/23 21:00 96 H 10/06/23 21:00 96/51 L 10/06/23 20:58 100 H 10/06/23 20:58 99/55 L 10/06/23 20:57 99 10/06/23 20:57 98 H 10/06/23 20:56 99 H 10/06/23 20:56 98/51 L O2 Del Method 10/07/23 04:30 Room Air 10/07/23 01:29 Room Air 10/07/23 01:05 10/07/23 01:03 10/07/23 00:48 10/07/23 00:35 10/07/23 00:34 10/07/23 00:18 10/07/23 00:05 10/07/23 00:04 10/06/23 23:50 10/06/23 23:48 10/06/23 23:48 10/06/23 23:35 10/06/23 23:33 10/06/23 23:33 10/06/23 23:20 10/06/23 23:19 10/06/23 23:19 10/06/23 23:05 10/06/23 23:03 10/06/23 23:03 10/06/23 23:02 10/06/23 23:02 10/06/23 22:57 10/06/23 22:57 10/06/23 22:57 10/06/23 22:57 10/06/23 22:53 10/06/23 22:53 10/06/23 22:52 10/06/23 22:52 10/06/23 22:47 10/06/23 22:47 10/06/23 22:42 10/06/23 22:42 10/06/23 22:37 10/06/23 22:37 10/06/23 22:37 10/06/23 22:32 10/06/23 22:32 10/06/23 22:30 10/06/23 22:30 10/06/23 22:27 10/06/23 22:27 10/06/23 22:22 10/06/23 22:22 10/06/23 22:21 10/06/23 22:21 10/06/23 22:17 10/06/23 22:17 10/06/23 22:12 10/06/23 22:12 10/06/23 22:08 10/06/23 22:08 10/06/23 22:07 10/06/23 22:07 10/06/23 22:02 10/06/23 22:02 10/06/23 22:00 10/06/23 22:00 10/06/23 21:57 10/06/23 21:57 10/06/23 21:52 10/06/23 21:52 10/06/23 21:51 10/06/23 21:51 10/06/23 21:47 10/06/23 21:47 10/06/23 21:42 10/06/23 21:42 10/06/23 21:37 10/06/23 21:37 10/06/23 21:36 10/06/23 21:36 10/06/23 21:34 10/06/23 21:34 10/06/23 21:32 10/06/23 21:32 10/06/23 21:32 10/06/23 21:32 10/06/23 21:30 10/06/23 21:30 10/06/23 21:28 10/06/23 21:28 10/06/23 21:27 10/06/23 21:27 10/06/23 21:26 10/06/23 21:26 10/06/23 21:22 10/06/23 21:22 10/06/23 21:22 10/06/23 21:20 10/06/23 21:20 10/06/23 21:18 10/06/23 21:18 10/06/23 21:17 10/06/23 21:17 10/06/23 21:16 10/06/23 21:16 10/06/23 21:14 10/06/23 21:14 10/06/23 21:12 10/06/23 21:12 10/06/23 21:12 10/06/23 21:12 10/06/23 21:10 10/06/23 21:10 10/06/23 21:08 10/06/23 21:08 10/06/23 21:07 10/06/23 21:07 10/06/23 21:06 10/06/23 21:06 10/06/23 21:04 10/06/23 21:04 10/06/23 21:02 10/06/23 21:02 10/06/23 21:02 10/06/23 21:02 10/06/23 21:00 10/06/23 21:00 10/06/23 20:58 10/06/23 20:58 10/06/23 20:57 10/06/23 20:57 10/06/23 20:56 10/06/23 20:56
[2023-10-07] MEDS: bisacodyL 5 MG TABEC PO SCH (21:03)
[2023-10-07 22:07] VITALS: RESP 18
[2023-10-08] MEDS ORDERED: bisacodyL 10 MG SUPP PR PRN
--- NOTE | 2023-10-08 06:02 | Obstetrical Progress Note ---
Date of Service October 08, 2023 Assessment & Plan Plan (1) with 39 completed weeks gestation: PPD#2 doing well. Ambulating, eating/drinking, ok. Anticipate DC today. Continue routine care. Admission and Anticipated Discharge Date Admission Date: October 06, 2023 Subjective Ambulation: ambulating normally Voiding: no voiding problems Diet Tolerance:: regular diet Lochia:: Moderate Results & Data Vital Signs (Past 12 Hours) Vital Signs Temp Pulse Resp BP Pulse Ox O2 Del Method 10/08/23 00:20 36.7 C 74 18 121/80 98 Room Air 10/07/23 20:50 36.8 C 88 18 115/71 97 Room Air
[2023-10-08 07:33] VITALS: BP 122/81; PULSE 64; TEMP 97.5; O2SAT 99
--- NOTE | 2023-10-08 07:43 | Obstetrical Progress Note ---
Date of Service <Yuko Titus MD - Last Filed: 10/08/23 07:46> October 08, 2023 Assessment & Plan <Yuko Titus MD - Last Filed: 10/08/23 07:46> (1) with 39 completed weeks gestation: PPD #2 S/P with first deg Lac No active complains today. Ready for discharge. <Meredith Moy DO - Last Filed: 10/08/23 08:10> (1) with 39 completed weeks gestation: Subjective <Yuko Titus MD - Last Filed: 10/08/23 07:46> Ambulation: ambulating normally Voiding: no voiding problems Diet Tolerance:: regular diet Lochia:: Moderate Feeding Type:: breast feeding Review of Systems All systems reviewed & are unremarkable except as noted in HPI & below Constitutional: + as per Subjective / HPI Eyes: + as per Subjective / HPI Ear, Nose, Mouth, Throat: + as per Subjective / HPI Respiratory: + as per Subjective / HPI Cardiovascular: + as per Subjective / HPI Breast: + see HPI Gastrointestinal: + as per Subjective / HPI Genitourinary (female): + as per Subjective / HPI Musculoskeletal: + as per Subjective / HPI Integumentary: + as per Subjective / HPI Neurologic: + as per Subjective / HPI Psychiatric: + as per Subjective / HPI Endocrine: + as per Subjective / HPI Hematologic / Lympatic: + as per Subjective / HPI Allergy / Immunological: + as per Subjective / HPI Physical Exam <Yuko Titus MD - Last Filed: 10/08/23 07:46> Constitutional WD/WN, vitals as above Eyes PERRL, conjunctivae normal, anicteric sclerae Neck trachea midline, no thyromegaly Respiratory normal respiratory effort, lungs clear to auscultation Cardiovascular RRR, no murmur, no edema Chest (Breasts) normal inspection/palpation of breasts Gastrointestinal (Abdomen) normal bowel sounds, soft, nontender, no hepatosplenomegaly Skin no rashes, warm and dry Psychiatric A+Ox3, euthymic affect Genitourinary OB Exam Abdomen: + fundal height Well involuted uterus in upto suprapubic region with good tone Results & Data <Yuko Titus MD - Last Filed: 10/08/23 07:46> Vital Signs (Past 12 Hours) Vital Signs Temp Pulse Resp BP Pulse Ox O2 Del Method 10/08/23 07:20 36.4 C L 64 18 122/81 99 Room Air 10/08/23 00:20 36.7 C 74 18 121/80 98 Room Air 10/07/23 20:50 36.8 C 88 18 115/71 97 Room Air Supervising Physician <Meredith Moy DO - Last Filed: 10/08/23 08:10> Co-Signing Physician Notes Resident Physician Supervision Note: I was present with Dr. Titus during the history and exam. I discussed the case with the resident and agree with the findings and plan as documented in the note. Any exceptions or clarifications are listed here: PPD#2 doing well, no cocnerns. DC home, instructions reviewed. Followup 6w PP. Documented By: Meredith Moy DO Resident Activity Tracking <Yuko Titus MD - Last Filed: 10/08/23 07:46> Resident Involvement: Resident Care Provided Care Provided: OB Delivery
== END 2023-10-08 13:20 | disposition home or self-care (01) | DRG 807 ==
LOC: OPB 18:14 → 4S1 18:15 → 4E2 10-07 01:20